=== PATIENT | female | born 2005 | race Caucasian/White ===

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

== ENCOUNTER 2024-03-16 16:21 | Emergency (ER) | payer OTHER ==
[~2024-03-16] VITALS: Ht 165.1 cm; Wt 143.4 kg
[~2024-03-16 16:21] MED LIST: CYCLOBENZAPRINE10 MG PO; HYDROCODON-ACE1 EA10 PO; ZYRTEC10 M3 PO
[2024-03-16] MEDS ORDERED: ondansetron HCL 4 MG/2 ML VIAL IV ONE ×2 (20:15→20:45)
[2024-03-16] MEDS ORDERED: OMEPRAZOLE20 MG PO (20:21)
[2024-03-16] MEDS ORDERED: MELOXICAM15 MG PO (20:21)
[2024-03-16 20:22] LABS: BILIRUBIN, URINE NEGATIVE (negative); BLOOD/HGB, URINE LARGE (Negative); KETONE, URINE TRACE (Negative); LEUK ESTERASE, URINE NEGATIVE (negative); NITRITE, URINE NEGATIVE (negative)
[2024-03-16 20:32] LABS: EPITHELIAL CELLS, URINE 0 /lpf (0-1+); WHITE BLOOD CELLS, URINE 0-1 /HPF (0-5)
[2024-03-16 20:33] LABS: BACTERIA, URINE 1+ /hpf (negative); CASTS, URINE NONE SEEN \\lpf; COLLECTION TYPE, URINE CLEAN CATCH; CRYSTALS, URINE AMORPHOUS URATES 4+ (0-1+); REFLEX CULTURE, URINE No (No)
[2024-03-16 20:37] LABS: BASOPHILS 0.5 % (0-2); EOSINOPHILS 1.1 % (0-6); HEMOGLOBIN 14.3 g/dL (12.0-18.0); LYMPHOCYTES 25.4 % (24-44); MCH 26.8 (27-36); MCHC 33.2 g/dl (30-36); MCV 80.7 fl (81-99); MONOCYTES 7.9 % (0-12); NEUTROPHILS 65.1 % (39-80); PLATELET COUNT 321 K/uL (140-440); RBC 5.32 M/ul (4.3-5.7); RDW 14.3 (10.5-15.0)
[2024-03-16 20:52] LABS: ANION GAP 14.9 (7-21); BILIRUBIN, TOTAL 0.2 ng/dL (0.2-1.0); BUN/CREATININE RATIO 13.09 (6.0-28.6); CALCIUM 9.2 mg/dL (8.5-10.1); CREATININE, SERUM 0.84 mg/dL (0.55-1.02); MAGNESIUM 2.1 mg/dL (1.8-2.4); POTASSIUM 3.9 mmol/L (3.5-5.1)
[2024-03-16 22:49] LABS: AMPHETAMINES, URINE NEGATIVE (NEGATIVE); BARBITURATES, URINE NEGATIVE (NEGATIVE); BENZODIAZEPINE, URINE NEGATIVE (NEGATIVE); BUPRENORPHINE, URINE NEGATIVE (NEGATIVE); CANNABINOID, URINE POSITIVE (NEGATIVE); COCAINE, URINE NEGATIVE (NEGATIVE); ECSTASY, URINE NEGATIVE (NEGATIVE); FENTANYL, URINE NEGATIVE (NEGATIVE); METHADONE, URINE NEGATIVE (NEGATIVE); OPIATES, URINE NEGATIVE (NEGATIVE); OXYCODONE, URINE NEGATIVE (NEGATIVE); PHENCYCLIDINE, URINE NEGATIVE (NEGATIVE)
[2024-03-16] MEDS ORDERED: ONDANSETRON HCL4 MG PO (23:41)
[2024-03-16 23:45] VITALS: BP 138/67
[2024-03-16] MEDS ORDERED: ONDANSETRON 4 MG HOME.PACK SL ONE (23:45)
== END 2024-03-16 23:51 | disposition home or self-care (01) ==
LOC: ED 16:21
PROVIDERS: Internal Medicine
DX: K21.9 Gastro-esophageal reflux disease without esophagitis (principal); Z88.5 Allergy status to narcotic agent; Z79.899 Other long term (current) drug therapy
CPT/HCPCS: 36415; 80053; 80307; 81001; 83735; 84703; 85025; 96374; 99284-25; A9270; J2405

== ENCOUNTER 2024-10-29 15:56 | Emergency (ER) | payer OTHER ==
[~2024-10-29] VITALS: Ht 165.1 cm; Wt 154.5 kg
[~2024-10-29 15:56] MED LIST changes: +EMTRICITABINE-1 EACH PO; +ISENTRESS400 MG PO; +MELOXICAM15 MG PO; +OMEPRAZOLE20 MG PO; +ONDANSETRON HCL4 MG PO
[2024-10-29] MEDS ORDERED: KETOROLAC TROMETHAMINE 30 MG/ML VIAL IV ONE (16:15)
[2024-10-29] MEDS ORDERED: ACETAMINOPHEN 500 MG TAB PO ONE (16:15)
[2024-10-29] MEDS ORDERED: SODIUM CHLORIDE 0.9% 1,000 ML IV ONE (16:15)
[2024-10-29 16:16] LABS: BASOPHILS 0.4 % (0.1-1.2); EOSINOPHILS 1.2 % (0.7-5.8); LYMPHOCYTES 7.2 % (19.3-51.7); MCH 25.4 PG (25.6-32.2); MCHC 32.5 g/dL (32.2-35.5); MCV 78.2 fL (79.4-94.8); MONOCYTES 9.9 % (4.7-12.5); NEUTROPHILS 81.1 % (34.0-71.1); RBC 5.32 M/uL (3.93-5.22)
[2024-10-29 16:33] LABS: ALT (SGPT) 25.0 U/L (14-59); AST (SGOT) 19.0 U/L (15-37); GLOMERULAR FILTRATION RATE,EST 121.0 mL/min (>60); PROTEIN, TOTAL 8.0 g/dL (6.4-8.2); UREA NITROGEN 15.0 mg/dL (7-18)
[2024-10-29 16:38] LABS: LACTIC ACID, BLOOD 1.5 mmol/L (0.4-2.0)
[2024-10-29 16:53] LABS: BLOOD/HGB, URINE LARGE (Negative); KETONE, URINE NEGATIVE (Negative); LEUK ESTERASE, URINE MODERATE (negative); NITRITE, URINE NEGATIVE (negative)
[2024-10-29 17:03] LABS: CRYSTALS, URINE NONE SEEN (0-1+); EPITHELIAL CELLS, URINE SQUAMOUS 4+ /lpf (0-1+)
[2024-10-29 17:04] LABS: BACTERIA, URINE NONE SEEN /hpf (negative); CASTS, URINE NONE SEEN \\lpf
[2024-10-29 17:05] LABS: REFLEX CULTURE, URINE No (No)
[2024-10-29 19:18] VITALS: BP 119/64
--- NOTE | 2024-10-30 17:39 | EKG ---
[facility] [address] [facility] [place], [place] [address] Signed Sinus tachycardia Otherwise normal ECG No previous ECGs available Confirmed by Zaina Patel MD ([id number]) on 10/30/2024 5:39:08 PM Electronically Signed By: ZAINA PATEL MD 10/30/24 1739 PATIENT NAME: SUSAN LUCIO Electrocardiogram DATE OF : [birth year] PHYSICIAN: ZAINA PATEL MD REPORT #: [id number] REPORT IS CONFIDENTIAL AND NOT TO BE RELEASED WITHOUT AUTHORIZATION
== END 2024-10-29 19:17 | disposition home or self-care (01) ==
LOC: ED 15:56
PROVIDERS: Emergency Medicine
DX: B34.9 Viral infection, unspecified (principal); Z88.5 Allergy status to narcotic agent
CPT/HCPCS: 36415; 71045; 80053; 81001; 83605; 85025; 87651; 93005; 93010; 96361; 96374; 96375; 99284-25; A9270; J0696; J1885; J7030